=== PATIENT | male | born 1955 | race African-American/Black ===

== ENCOUNTER 2018-05-31 21:39 | Inpatient (IN) | payer OTHER ==
[2018-05-31 22:14] VITALS: BMI 21.8
--- NOTE | 2018-05-31 23:10 | HP ---
Screened but not Admitted - Documentation of Visit Screened but not Admitted: No Left Prior to Completion of Assessment: No Insurance Authorization Denied: No Patient Does Not Meet Criteria for Admission: No Level of Care Recommended at this Time: Other Additional Information/Explanation: Patient is seeking admission to detox from alcohol. He reports that he was in patient at [facility] for 2 days. Patient was brought in by [facility] with intravenous access on his left arm. Unable to verify with [facility] because access was not dated, signed or secured. Patient was picked up by [facility] to go back to [facility] and remove access.
--- NOTE | 2018-05-31 23:58 | HP ---
CIWA Score - CIWA Score Nausea/Vomitin (x 8) Muscle Tremors: 4-Moderate,w/Arms Extend Anxiety: 4-Mod. Anxious/Guarded Agitation: 0-Normal Activity Paroxysmal Sweats: 2 Orientation: 1-Uncertain about Date Tacttile Disturbances: 0-None Auditory Disturbances: 0-None Visual Disturbances: 0-None Headache: 3-Moderate CIWA-Ar Total Score: 17 Admission ROS BHS - HPI Chief Complaint: Alcohol withdrawal symptoms Allergies/Adverse Reactions: Allergies Allergy/AdvReac Type Severity Reaction Status Date / Time Pork/Porcine Containing Allergy Verified 05/31/18 23:36 Products History of Present Illness: 63 years old male with a long history of alcohol dependence is seeking admission to detox. Patient has been in detox at [facility] and reports 9 years of sobriety. He has medical history of hypertension, Headaches and depression. He denies suicide attempt and suicidal ideation at this time. Exam Limitations: No Limitations - Ebola screening Have you traveled outside of the country in the last 21 days: No (N) Have you had contact with anyone from an Ebola affected area: No Have you been sick,other than usual withdrawal symptoms: No Do you have a fever: No - Review of Systems Constitutional: Chills, Malaise, Night Sweats, Weakness EENT: reports: Blurred Vision Respiratory: reports: No Symptoms reported Cardiac: reports: No Symptoms Reported GI: reports: Poor Appetite, Poor Fluid Intake, Vomiting, Abdominal cramping : reports: No Symptoms Reported Musculoskeletal: reports: Back Pain, Joint Pain, Muscle Pain Integumentary: reports: Bruising, Dryness Neuro: reports: Headache, Tremors Endocrine: reports: Flushing Hematology: reports: No Symptoms Reported Psychiatric: reports: Anxious, Depressed Other Systems: Reviewed and Negative Patient History - Patient Medical History Hx Anemia: Yes (SICKLE CELL TRAIT) Hx Asthma: No Hx Chronic Obstructive Pulmonary Disease (COPD): No Hx Cancer: No Hx Cardiac Disorders: No Hx Congestive Heart Failure: No Hx Hypertension: Yes (Not on medication) Hx Hypercholesterolemia: No Hx Pacemaker: No HX Cerebrovascular Accident: No Hx Seizures: No Hx Dementia: No Hx Diabetes: No Hx Gastrointestinal Disorders: No Hx Liver Disease: No Hx Genitourinary Disorders: No Hx Sexually Transmitted Disorders: No Hx Renal Disease (ESRD): No Hx Thyroid Disease: No Hx Human Immunodeficiency Virus (HIV): No (Negative 2018) Hx Hepatitis C: No Hx Depression: Yes (Not on medication) Hx Suicide Attempt: No (Denies suicide attempt and suicidal ideation at this time) Hx Bipolar Disorder: No Hx Schizophrenia: No Other Medical History: Headaches - Not on medication - Patient Surgical History Past Surgical History: No Hx Neurologic Surgery: No Hx Cataract Extraction: No Hx Cardiac Surgery: No Hx Lung Surgery: No Hx Breast Surgery: No Hx Breast Biopsy: No Hx Abdominal Surgery: No Hx Appendectomy: No Hx Cholecystectomy: No Hx Genitourinary Surgery: No Hx Section: No Hx Orthopedic Surgery: No Anesthesia Reaction: No - PPD History Previous Implant?: No (POSTIVE PPD. INH FOR 9 MONTHS ) Documented Results: Negative w/proof - Reproductive History Patient is a Female of Child Bearing Age (11 -55 yrs old): No (male) - Smoking Cessation Smoking history: Current every day smoker Have you smoked in the past 12 months: Yes Aproximately how many cigarettes per day: 10 Hx Chewing Tobacco Use: No Initiated information on smoking cessation: Yes 'Breaking Loose' booklet given: 06/01/18 Family Disease History - Family Disease History Family Disease History: Diabetes: Mother (HTN), Heart Disease: Mother, Other: Father (ALCOHOLIC, OF CIRRHOSIS) Admission Physical Exam BHS - Vital Signs Vital Signs: Vital Signs - 24 hr 05/31/18 22:12 Temperature 97.2 F L Pulse Rate 120 H Respiratory 22 H Rate Blood Pressure 151/90 - Physical General Appearance: Yes: Moderate Distress, Tremorous, Irritable, Sweating, Anxious HEENTM: Yes: EOMI, Normal ENT Inspection, Normocephalic, Normal Voice, CATHERINE Respiratory: Yes: Lungs Clear, Normal Breath Sounds, No Respiratory Distress Neck: Yes: Supple Breast: Yes: Breast Exam Deferred Cardiology: Yes: Tachycardia Abdominal: Yes: Normal Bowel Sounds, Soft Genitourinary: Yes: Within Normal Limits Back: Yes: Normal Inspection Musculoskeletal: Yes: Back pain, Joint Stiffness, Muscle Pain Extremities: Yes: Tremors Neurological: Yes: Alert, Normal Mood/Affect Integumentary: Yes: Warm Lymphatic: Yes: Within Normal Limits - Diagnostic (1) Alcohol dependence with uncomplicated withdrawal Current Visit: Yes Status: Chronic (2) Depression Current Visit: Yes Status: Chronic Qualifiers: Depression Type: unspecified Qualified Code(s): F32.9 - Major depressive disorder, single episode, unspecified (3) HTN (hypertension) Current Visit: No Status: Suspected Qualifiers: Hypertension type: essential hypertension Qualified Code(s): I10 - Essential (primary) hypertension (4) Nicotine dependence Current Visit: No Status: Acute Cleared for Admission [facility] - Detox or Rehab [facility] Level of Care: Medically Managed Detox Regimen/Protocol: Librium BHS Breath Alcohol Content Breath Alcohol Content: 0 Urine Drug Screen - Results Drug Screen Negative: No Urine Drug Screen Results: ISAI-Cocaine, BZO-Benzodiazepines
[2018-06-01] MEDS ORDERED: ACETAMINOPHEN 325 MG TABLET (FP) PO PRN (00:07)
[2018-06-01] MEDS ORDERED: MAG HYDROX/AL HYDROX/SIMETH 30 ML UNIT-DOSE CUP PO PRN (00:07)
[2018-06-01] MEDS ORDERED: MENTHOL/PHENOL 1 EACH UD MM PRN (00:07)
[2018-06-01] MEDS ORDERED: guaiFENesin/D-METHORPHAN HB 10 ML UNIT-DOSE CUPS PO PRN (00:07)
[2018-06-01] MEDS ORDERED: IBUPROFEN 400 MG TABLET (FP) PO PRN (00:07)
[2018-06-01] MEDS ORDERED: P-EPHED 60MG/TRIPROLIDI 2.5MG TABLET PO PRN (00:07)
[2018-06-01] MEDS ORDERED: METHADONE HCL 10 MG TABLET (FOR DETOX USE ONLY) PO ONE ×2 (00:07→22:00)
[2018-06-01] MEDS ORDERED: MAGNESIUM HYDROX 2400MG/30ML ORAL SUSPENSION 30 ML CUP PO PRN (00:07)
[2018-06-01] MEDS ORDERED: MAGNESIUM CITRATE 300 ML BOTTLE PO PRN (00:07)
[2018-06-01] MEDS ORDERED: chlordiazePOXIDE HCL 25 MG CAPSULE PO PRN (00:07)
[2018-06-01] MEDS ORDERED: LOPERAMIDE HCL 2 MG CAPSULE PO PRN (00:07)
[2018-06-01] MEDS: chlordiazePOXIDE HCL 25 MG CAPSULE PO SCH ×2 (05:42→10:22)
[2018-06-01 09:16] VITALS: BP 133/71; PULSE 96; TEMP 98.1
[2018-06-01] MEDS ORDERED: NIFEdipine E.R. 30 MG TABLET (FP) PO SCH (10:00)
[2018-06-01] MEDS ORDERED: PRENATAL VITAMINS W/ FOLIC ACID TABLET (FP) PO SCH (10:00)
--- NOTE | 2018-06-01 11:42 | CONSULT ---
[facility] Psychiatric Consult - Data Date of interview: 06/01/18 Admission source: [facility] Identifying data: Patient is a 63 year old single male. Patient refusing to provided additional identifying data. Substance Abuse History: - Smoking Cessation. Smoking history: Current every day smoker. Have you smoked in the past 12 months: Yes. Aproximately how many cigarettes per day: 10. Hx Chewing Tobacco Use: No. Initiated information on smoking cessation: Yes. 'Breaking Loose' booklet given: 06/01/18 Medical History: Anemia (sickle cell trait), Positive PPD. INH for 9 months Psychiatric History: Patient irritable. He denies h/o psychiatric hospitalization, outpatient psychiatric care and suicide attempt. Physical/Sexual Abuse/Trauma History: denies. Mental Status Exam - Mental Status Exam Alert and Oriented to: Time, Place, Person Cognitive Function: Good Patient Appearance: Well Groomed Mood: Irritable Affect: Mood Congruent Patient Behavior: Agitated Speech Pattern: Clear Voice Loudness: Normal Thought Process: Intact, Goal Oriented Thought Disorder: Not Present Hallucinations: Denies Suicidal Ideation: Denies Homicidal Ideation: Denies Insight/Judgement: Poor Sleep: Poorly Appetite: Fair Muscle strength/Tone: Normal Gait/Station: Normal Psychiatric Findings - Problem List ([place] 1, 2,3) (1) Cocaine dependence Current Visit: Yes Status: Acute (2) Substance induced mood disorder Current Visit: Yes Status: Acute (3) Alcohol dependence with uncomplicated withdrawal Current Visit: Yes Status: Acute - Initial Treatment Plan Initial Treatment Plan: Psychoeducation provided. Detoxification in progress. Observation.
--- NOTE | 2018-06-01 12:38 | PN ---
BHS Progress Note (SOAP) Subjective: sweat tremor restlessness no abscess noted patient lives in [place] with his Objective: 06/01/18 12:40 Vital Signs Temperature 98.1 F 06/01/18 09:15 Pulse Rate 96 H 06/01/18 09:15 Respiratory Rate 18 06/01/18 09:15 Blood Pressure 133/71 06/01/18 09:15 O2 Sat by Pulse Oximetry (%) 06/01/18 12:41 lab noted
--- NOTE | 2018-06-01 13:03 | DS ---
[facility] Detox Discharge Summary Admission Date: 05/31/18 Discharge Date: 06/01/18 - History Present History: Alcohol Dependence Additional Comments: 63 years old male admitted o 05/31/18 for alcohol withdrawal sx patient insists to leave the detox unit wants to go home to his patient does not have abscess patient stated that he does not use opioid but alcohol patient reported that he does no need detox he wants to go to rehab - Physical Exam Results Vital Signs: Vital Signs Temperature 98.1 F 06/01/18 09:15 Pulse Rate 96 H 06/01/18 09:15 Respiratory Rate 18 06/01/18 09:15 Blood Pressure 133/71 06/01/18 09:15 O2 Sat by Pulse Oximetry (%) Pertinent Admission Physical Exam Findings: alcohol withdrawal sx Vital Signs Temperature 98.1 F 06/01/18 09:15 Pulse Rate 96 H 06/01/18 09:15 Respiratory Rate 18 06/01/18 09:15 Blood Pressure 133/71 06/01/18 09:15 O2 Sat by Pulse Oximetry (%) lab noted available - Treatment Hospital Course: Detox Protocol Followed, Responded well Patient has Accepted a Rehab Referral to: [facility] - Medication Discharge Medications: Ambulatory Orders Nifedipine ER [Procardia XL -] 30 mg PO DAILY #30 [id number] 04/24/15 - Diagnosis (1) Nicotine dependence Current Visit: Yes Status: Acute Qualifiers: Nicotine product type: cigarettes Substance use status: in withdrawal Qualified Code(s): F17.213 - Nicotine dependence, cigarettes, with withdrawal (2) HTN (hypertension) Current Visit: Yes Status: Chronic Qualifiers: Hypertension type: essential hypertension Qualified Code(s): I10 - Essential (primary) hypertension (3) Alcohol dependence with uncomplicated withdrawal Current Visit: Yes Status: Acute - AMA Did Patient Leave Against Medical Advice: No
[2018-06-01] MEDS ORDERED: THIAMINE HCL 100 MG TABLET (FP) PO SCH (22:00)
[2018-06-01] MEDS ORDERED: MELATONIN 5 MG TABLETS PO PRN (22:00)
[2018-06-02] MEDS ORDERED: chlordiazePOXIDE HCL 25 MG CAPSULE PO SCH (05:00)
[2018-06-02] MEDS ORDERED: METHADONE HCL 10 MG TABLET (FOR DETOX USE ONLY) PO SCH (10:00)
--- NOTE | 2018-06-02 11:08 | EKG ---
Test Reason : Blood Pressure : / mmHG Vent. Rate : 097 BPM Atrial Rate : 097 BPM P-R Int : 122 ms QRS Dur : 080 ms QT Int : 366 ms P-R-T Axes : 060 -11 014 degrees QTc Int : 464 ms NORMAL SINUS RHYTHM NORMAL ECG NO PREVIOUS ECGS AVAILABLE Confirmed by Prashant Holguin MD ([id number]) on 06/02/2018 11:07:23 AM Referred By: Confirmed By:Prashant Holguin MD
[2018-06-03] MEDS ORDERED: chlordiazePOXIDE 5 MG CAPSULE PO SCH (05:00)
[2018-06-03] MEDS ORDERED: METHADONE HCL 5 MG TABLET (FOR DETOX USE ONLY) PO SCH (10:00)
[2018-06-04] MEDS ORDERED: chlordiazePOXIDE HCL 10 MG CAPSULE PO SCH (05:00)
[2018-06-05] MEDS ORDERED: METHADONE HCL 10 MG TABLET (FOR DETOX USE ONLY) PO SCH (10:00)
[2018-06-06] MEDS ORDERED: METHADONE HCL 5 MG TABLET (FOR DETOX USE ONLY) PO SCH (06:00)
== END 2018-06-01 12:58 | disposition left against medical advice (07) | DRG 770 ==
LOC: YASAS 21:39 → Y6N 23:41
PROC: HZ2ZZZZ Detoxification Services for Substance Abuse Treatment (ICD-10-PCS; principal; 2018-05-31)
DX: F10.230 Alcohol dependence with withdrawal, uncomplicated (principal); F14.20 Cocaine dependence, uncomplicated; F17.213 Nicotine dependence, cigarettes, with withdrawal; F19.24 Other psychoactive substance dependence with psychoactive substance-induced mood disorder; F32.9 Major depressive disorder, single episode, unspecified; I10 Essential (primary) hypertension; D57.3 Sickle-cell trait; R00.0 Tachycardia, unspecified; Z59.0 Homelessness
CPT/HCPCS: 93005; 93010

== ENCOUNTER 2019-03-29 10:37 | Inpatient (IN) | payer OTHER ==
[2019-03-29 11:02] VITALS: BMI 21.5
--- NOTE | 2019-03-29 12:34 | HP ---
<Ashtyn Martinez - Last Filed: 03/29/19 13:12> CIWA Score Nausea/Vomitin-Mild Nausea/No Vomiting Muscle Tremors: 2 Anxiety: 2 Agitation: 1-Slight > Activity Paroxysmal Sweats: 2 Orientation: 0-Oriented Tacttile Disturbances: 1-Very Mild Itch/Numbness Auditory Disturbances: 0-None Visual Disturbances: 0-None Headache: 3-Moderate CIWA-Ar Total Score: 12 - Admission Criteria OASAS Guidelines: Admission for Medically Managed Detox: Requires at least one of the followin. CIWA greater than 12 2. Seizures within the past 24 hours 3. Delirium tremens within the past 24 hours 4. Hallucinations within the past 24 hours 5. Acute intervention needed for co occurring medical disorder 6. Acute intervention needed for co occurring psychiatric disorder 7. Severe withdrawal that cannot be handled at a lower level of care (continued vomiting, continued diarrhea, abnormal vital signs) requiring intravenous medication and/or fluids 8. Admission ROS [facility] Chief Complaint: 64 y/o M with PMH prostate CA, HTN, depression, sickle cell trait, who presents for alcohol detox. Allergies/Adverse Reactions: Allergies Allergy/AdvReac Type Severity Reaction Status Date / Time Pork/Porcine Containing Allergy Verified 03/29/19 10:52 Products History of Present Illness: 64 y/o M with prostate CA, HTN, depression, sickle cell trait, who presents for alcohol detox. Per pt, he was at [facility] yesterday for alcohol detox ( received 1 dose of librium). While there, he had chest pain and generalized abdominal pain, thus underwent a CTAP. Was found to subsequently have prostate CA. He was told that he would need sx. States that he was referred to multiple centers for detox, but picked to come here. Last drink was 3 days ago. He had 1 L of vodka. Drinks this amount daily. Has blacked out previously, however has never had alcohol withdrawal sz. Longest duration sobriety 2 days. When pt withdraws, he becomes nauseated, vomits, and becomes tremulous. Has drank for 35 yrs because he "likes it." Not to mask any feelings, but does endorse increased stress in his life. Used cocaine 10 days ago, < $10 worth via smoking. Was used 1x, does not use regularly. Denies IVDA. No other drug use. Was at detox at [facility] 2014, 2016, 2018. Pt's goal is to complete alcohol detox and then have his prostate CA addressed via sx, oncology f/u. PMH: as above PsxH: denies meds: denies allergies: pork/pork containing products - causes HTN FH: sister- asthmatic (w/hx intubation), mother - alzheimer's dz SH: works as a [employer]. lives in an apt, has adequate social support. smokes 1/2 ppd x 30 yrs. alcohol and cocaine use as above. denies other drug use. Exam Limitations: No Limitations - Ebola screening Have you traveled outside of the country in the last 21 days: No Have you had contact with anyone from an Ebola affected area: No Have you been sick,other than usual withdrawal symptoms: No Do you have a fever: No - Review of Systems Constitutional: Chills, Fever, Night Sweats, Unintentional Wgt. Loss (+15 pound weight loss since october) EENT: reports: Blurred Vision Respiratory: reports: Shortness of Breath Cardiac: reports: Chest Tightness GI: reports: Diarrhea, Nausea, Poor Appetite : reports: No Symptoms Reported Musculoskeletal: reports: No Symptoms Reported Integumentary: reports: No Symptoms Reported Neuro: reports: No Symptoms reported Endocrine: reports: No Symptoms Reported Hematology: reports: No Symptoms Reported Psychiatric: reports: Orientated x3 Patient History - Patient Medical History Hx Anemia: Yes (SICKLE CELL TRAIT) Hx Asthma: No Hx Chronic Obstructive Pulmonary Disease (COPD): No Hx Cancer: No Hx Cardiac Disorders: No Hx Congestive Heart Failure: No Hx Hypertension: Yes (Not on medication) Hx Hypercholesterolemia: No Hx Pacemaker: No HX Cerebrovascular Accident: No Hx Seizures: No Hx Dementia: No Hx Diabetes: No Hx Gastrointestinal Disorders: No Hx Liver Disease: No Hx Genitourinary Disorders: No Hx Sexually Transmitted Disorders: No Hx Renal Disease (ESRD): No Hx Thyroid Disease: No Hx Human Immunodeficiency Virus (HIV): No (Negative 2017) Hx Hepatitis C: No Hx Depression: Yes (Not on medication) Hx Suicide Attempt: No (Denies suicide attempt and suicidal ideation at this time) Hx Bipolar Disorder: No Hx Schizophrenia: No - Patient Surgical History Past Surgical History: No Hx Neurologic Surgery: No Hx Cataract Extraction: No Hx Cardiac Surgery: No Hx Lung Surgery: No Hx Breast Surgery: No Hx Breast Biopsy: No Hx Abdominal Surgery: No Hx Appendectomy: No Hx Cholecystectomy: No Hx Genitourinary Surgery: No Hx Section: No Hx Orthopedic Surgery: No Anesthesia Reaction: No - PPD History Documented Results: Positive w/o proof PPD to be Administered?: No - Reproductive History Patient is a Female of Child Bearing Age (11 -55 yrs old): No - Smoking Cessation Smoking history: Current every day smoker Have you smoked in the past 12 months: Yes Aproximately how many cigarettes per day: 10 Hx Chewing Tobacco Use: No Initiated information on smoking cessation: Yes 'Breaking Loose' booklet given: 03/29/19 - Substance & Tx. History Hx Alcohol Use: Yes Substance Use Type: Alcohol, Cocaine Hx Substance Use Treatment: Yes ([facility] detox 2014, 2016, 2018 ) - Substances abused Alcohol Substance route: Oral Frequency: Daily Amount used: 1 liter of vodka Age of first use: 27 Date of last use: 03/27/19 Cocaine Substance route: Smoking Frequency: 1-3 times last 30 days Amount used: < 10 dollars worth Date of last use: 03/19/19 Family Disease History - Family Disease History Family Disease History: Diabetes: Mother (HTN, alzheimer's ), Heart Disease: Mother, Other: Father (ALCOHOLIC, OF CIRRHOSIS), Sister (sister, asthmatic) Admission Physical Exam [facility] - Vital Signs Vital Signs: Vital Signs - 24 hr 03/29/19 03/29/19 10:54 11:43 Temperature 97.1 F L 97.1 F L Pulse Rate 84 84 Respiratory 18 18 Rate Blood Pressure 139/83 139/83 - Physical General Appearance: Yes: Within Normal Limits, Other HEENTM: Yes: Other (+lipoma on R forehead) Respiratory: Yes: Wheezing, Expiration (+prolonged expiratory phase) Neck: Yes: Supple Breast: Yes: Breast Exam Deferred Cardiology: Yes: Regular Rhythm, Regular Rate, S1, S2 Abdominal: Yes: Tenderness Genitourinary: Yes: Within Normal Limits Back: Yes: Within Normal Limits Musculoskeletal: Yes: Within Normal Limits Extremities: Yes: Within Normal Limits 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 NML intact Integumentary: Yes: Within Normal Limits Cleared for Admission S - Detox or Rehab [facility] Level of Care: Medically Managed Detox Regimen/Protocol: Librium Breathalyzer - Breathalyzer Breathalyzer: 0 Urine Drug Screen - Test Device Lot number: [id number] Expiration date: 12/29/20 - Control Is test valid?: Yes - Results Drug screen NEGATIVE: No Urine drug screen results: BZO-Benzodiazepines Inpatient Rehab Admission - Rehab Decision to Admit Inpatient rehab admission?: No <Jus Byrne - Last Filed: 03/29/19 14:07> CIWA Score - Admission Criteria OASAS Guidelines: Admission for Medically Managed Detox: Requires at least one of the followin. CIWA greater than 12 2. Seizures within the past 24 hours 3. Delirium tremens within the past 24 hours 4. Hallucinations within the past 24 hours 5. Acute intervention needed for co occurring medical disorder 6. Acute intervention needed for co occurring psychiatric disorder 7. Severe withdrawal that cannot be handled at a lower level of care (continued vomiting, continued diarrhea, abnormal vital signs) requiring intravenous medication and/or fluids 8. Admission Physical Exam BHS - Vital Signs Vital Signs: Vital Signs - 24 hr 03/29/19 03/29/19 10:54 11:43 Temperature 97.1 F L 97.1 F L Pulse Rate 84 84 Respiratory 18 18 Rate Blood Pressure 139/83 139/83
[2019-03-29] MEDS ORDERED: chlordiazePOXIDE HCL 10 MG CAPSULE PO PRN (13:09)
[2019-03-29] MEDS ORDERED: ACETAMINOPHEN 325 MG TABLET (FP) PO PRN ×2 (13:10)
[2019-03-29] MEDS ORDERED: MELATONIN 5 MG TABLETS PO PRN (13:10)
[2019-03-29] MEDS ORDERED: hydrOXYzine PAMOATE 25 MG CAPSULE (FP) PO PRN (13:10)
[2019-03-29] MEDS ORDERED: IBUPROFEN 400 MG TABLET (FP) PO PRN (13:10)
[2019-03-29] MEDS ORDERED: BISMUTH SUBSALICYLATE 524 MG/30 ML UD PO PRN (13:10)
[2019-03-29] MEDS ORDERED: MAG HYDROX/AL HYDROX/SIMETH 30 ML UNIT-DOSE CUP PO PRN (13:10)
[2019-03-29] MEDS ORDERED: MAGNESIUM HYDROX 2400MG/30ML ORAL SUSPENSION 30 ML CUP PO PRN (13:10)
[2019-03-29] MEDS ORDERED: MENTHOL/PHENOL 1 EACH UD MM PRN (13:10)
[2019-03-29] MEDS ORDERED: ALBUTEROL SO4 0.083% IH SOL 2.5 MG/3 ML VIAL.NEB. NEB PRN (13:44)
--- NOTE | 2019-03-29 14:10 | PN ---
[facility] Progress Note Note: Patient was reviewed with resident and qualified for detox. See full history and assessment. All labs reviewed and medications reviewed and appropriate. Dr. Byrne
[2019-03-29] MEDS: chlordiazePOXIDE HCL 25 MG CAPSULE PO SCH ×2 (14:58→21:56)
[2019-03-30] MEDS: chlordiazePOXIDE HCL 25 MG CAPSULE PO SCH ×3 (07:46→22:02)
--- NOTE | 2019-03-30 09:31 | CONSULT ---
[facility] Psychiatric Consult - Data Date of interview: 03/30/19 Admission source: [facility] Identifying data: Patient is a 64 year old single male, father of two, domiciled , and is currently employed. This is one of multiple admissions for patient. Patient admitted to for alcohol and cocaine dependence. Substance Abuse History: Smoking Cessation. Smoking history: Current every day smoker. Have you smoked in the past 12 months: Yes. Aproximately how many cigarettes per day: 10. Hx Chewing Tobacco Use: No. Initiated information on smoking cessation: Yes. 'Breaking Loose' booklet given: 03/29/19. - Substance & Tx. History. Hx Alcohol Use: Yes. Substance Use Type: Alcohol, Cocaine. Hx Substance Use Treatment: Yes ([facility] 2014, 2017, 2018 ). - Substances abused. Alcohol. Substance route: Oral. Frequency: Daily. Amount used: 1 liter of vodka. Age of first use: 27. Date of last use: 03/27/19. Cocaine. Substance route: Smoking. Frequency: 1-3 times last 30 days. Amount used: < 10 dollars worth. Date of last use: 03/19/19 Medical History: anemia, hypertension Psychiatric History: Patient denies h/o psychiatric hospitalization, outpatient care and suicide attempt. At present patient reports feeling sad and is experiencing difficulty sleeping but is motivated to complete detox. Physical/Sexual Abuse/Trauma History: denies. Mental Status Exam - Mental Status Exam Alert and Oriented to: Time, Place, Person Cognitive Function: Good Patient Appearance: Well Groomed Mood: Sad Affect: Mood Congruent Patient Behavior: Cooperative Speech Pattern: Appropriate Voice Loudness: Normal Thought Process: Goal Oriented Thought Disorder: Not Present Hallucinations: Denies Suicidal Ideation: Denies Homicidal Ideation: Denies Insight/Judgement: Poor Sleep: Poorly Appetite: Fair Muscle strength/Tone: Normal Gait/Station: Normal Psychiatric Findings - Problem List ([place] 1, 2,3) (1) Alcohol dependence Current Visit: Yes Status: Acute (2) Cocaine dependence Current Visit: Yes Status: Acute (3) Substance induced mood disorder Current Visit: Yes Status: Acute (4) Substance-induced sleep disorder Current Visit: Yes Status: Acute - Initial Treatment Plan Initial Treatment Plan: Psychoeducation provided. Detoxification in progress. Will order Trazodone 50mg HS. Patient reports favorable effects from accepting trazodone in the past for insomnia. Benefits and side effects discussed. Verbal consent given.
[2019-03-30] MEDS: PRENATAL VITAMINS W/ FOLIC ACID TABLET (FP) PO SCH (10:20)
[2019-03-30] MEDS ORDERED: WITCH HAZEL 50% (TUCKS) 40 PAD/JAR PAD TP PRN (11:30)
[2019-03-30] MEDS ORDERED: ONDANSETRON *ODT* 4 MG TABLET SL PRN (14:34)
--- NOTE | 2019-03-30 14:35 | PN ---
S CIWA - CIWA Score Nausea/Vomitin Muscle Tremors: 3 Anxiety: 2 Agitation: 0-Normal Activity Paroxysmal Sweats: No Perspiration Orientation: 0-Oriented Tacttile Disturbances: 1-Very Mild Itch/Numbness Auditory Disturbances: 0-None Visual Disturbances: 1-Very Mild Sensitivity Headache: 3-Moderate CIWA-Ar Total Score: 15 BHS Progress Note (SOAP) Subjective: Tremors, H/A, Stomach Cramping, Vomiting. Objective: PATIENT A & O X 3, OBSERVED AMBULATING ON UNIT UNASSISTED. IN NO ACUTE DISTRESS. 03/30/19 14:31 Vital Signs Temperature 97.7 F 03/30/19 09:07 Pulse Rate 96 H 03/30/19 09:07 Respiratory Rate 18 03/30/19 09:07 Blood Pressure 155/85 03/30/19 09:07 O2 Sat by Pulse Oximetry (%) DESPITE ENCOURAGEMENT FROM HUMAN SERVICES PROFESSIONAL, PATIENT REFUSED TO HAVE ADMISSION LABS DRAWN THIS AM, NOTING THAT IS IS GENERALLY VERY DIFFICULT FOR ANYONE TO DRAW BLOOD ON HIM. 03/30/19 14:34 Assessment: 03/30/19 14:34 WITHDRAWAL SYMPTOMS. Plan: CONTINUE DETOX. INCREASE DAILY PO WATER INTAKE. PRN ZOFRAN SL FOR NAUSEA/VOMITING. PATIENT REPORTS HISTORY OF INTERMITTENT ELEVATIONS IN BLOOD PRESSURE. PATIENT DENIES HISTORY OF MEDICAL TREATMENT FOR HYPERTENSION. WILL CONTINUE TO MONITOR BLOOD PRESSURE.
[2019-03-30] MEDS ORDERED: traZODone HCL 50 MG TABLET (FP) PO SCH (22:00)
[2019-03-31] MEDS ORDERED: chlordiazePOXIDE 5 MG CAPSULE PO SCH (05:00)
[2019-03-31 09:30] VITALS: BP 132/84; PULSE 68; TEMP 97.7
[2019-03-31] MEDS: PRENATAL VITAMINS W/ FOLIC ACID TABLET (FP) PO SCH (11:25)
--- NOTE | 2019-03-31 12:39 | DS ---
[facility] Detox Discharge Summary Admission Date: 03/29/19 Discharge Date: 03/31/19 - History Present History: Alcohol Dependence Additional Comments: 64 years old male admitted on 03/29/19 for acute alcohol withdrawal sx management reported feeling better today wants to leave the detox and go to alcohol rehab today insists to leave the detox unit today "can not wait for tomorrow" patient wants to return to work as soon as possible patient is alert oriented x 3 denies dizziness no shortness of breath "I have place to go to" Pertinent Past History: patient considers bringing in medication list to primary care provider who monitoring his bp - Physical Exam Results Vital Signs: Vital Signs Temperature 97.7 F 03/31/19 09:29 Pulse Rate 68 03/31/19 09:29 Respiratory Rate 18 03/31/19 09:29 Blood Pressure 132/84 03/31/19 09:29 O2 Sat by Pulse Oximetry (%) Pertinent Admission Physical Exam Findings: alcohol withdrawal sx no lab result found by the com writer - Treatment Hospital Course: Detox Protocol Followed, Responded well Patient has Accepted a Rehab Referral to: [facility] - Medication Discharge Medications: Ambulatory Orders NK [No Known Home Medication] 03/29/19 - Diagnosis (1) Substance induced mood disorder Current Visit: Yes Status: Suspected (2) Alcohol dependence with uncomplicated withdrawal Current Visit: Yes Status: Acute (3) Nicotine dependence Current Visit: Yes Status: Acute Qualifiers: Nicotine product type: cigarettes Substance use status: in withdrawal Qualified Code(s): F17.213 - Nicotine dependence, cigarettes, with withdrawal (4) HTN (hypertension) Current Visit: Yes Status: Chronic Qualifiers: Hypertension type: essential hypertension Qualified Code(s): I10 - Essential (primary) hypertension - AMA Did Patient Leave Against Medical Advice: Yes
[2019-04-01] MEDS ORDERED: chlordiazePOXIDE HCL 10 MG CAPSULE PO PRN
[2019-04-01] MEDS ORDERED: chlordiazePOXIDE HCL 10 MG CAPSULE PO SCH (05:00)
[2019-04-02] MEDS ORDERED: chlordiazePOXIDE HCL 10 MG CAPSULE PO ONE (05:00)
== END 2019-03-31 12:08 | disposition left against medical advice (07) | DRG 770 ==
LOC: YASAS 10:37 → Y3N 13:38
PROVIDERS: ADMIT Surgery; ATTEND Surgery
PROC: HZ2ZZZZ Detoxification Services for Substance Abuse Treatment (ICD-10-PCS; principal; 2019-03-29)
DX: F10.230 Alcohol dependence with withdrawal, uncomplicated (principal); F17.213 Nicotine dependence, cigarettes, with withdrawal; F19.24 Other psychoactive substance dependence with psychoactive substance-induced mood disorder; F19.282 Other psychoactive substance dependence with psychoactive substance-induced sleep disorder; I10 Essential (primary) hypertension; C61 Malignant neoplasm of prostate; D57.3 Sickle-cell trait